=== PATIENT | female | born 1965 | race Caucasian/White ===

== ENCOUNTER → 2016-07-15 | Outpatient (CLI) | payer BC, OTHER | LOC: ULTRA 14:43 | DX: M79.89 Other specified soft tissue disorders (principal) ==

== ENCOUNTER 2018-08-03 12:08 | Observation (INO) | payer BC, OTHER ==
[~2018-08-03] VITALS: Ht 172.7 cm; Wt 82.6 kg
--- NOTE | ~2018-08-03 | O ---
[facility] [place] [address] OPERATIVE REPORT Name: MERLYN LYON Room #: 150-1 ADM IN M.R.#: [id number] Admission: 08/03/18 ������������������ Attend Phys: Steve Foster MD Discharge: ������������������ Date of : 67 Report #: [id number] THIS REPORT FOR: //name// CC: JOSIAS Foster Physician staff DATE OF SERVICE: 08/03/2018 PREOPERATIVE DIAGNOSIS: Cholecystitis, acalculous. POSTOPERATIVE DIAGNOSIS: Cholecystitis, acalculous. PROCEDURES PERFORMED: Laparoscopic cholecystectomy with cholangiogram. ANESTHESIA: General anesthesia. SURGEON: Steve Foster M.D. COMPLICATIONS: None. ESTIMATED BLOOD LOSS: 15 mL. DESCRIPTION OF PROCEDURE: With the patient under general anesthesia, abdomen was prepped and draped in sterile fashion and the patient received preoperative Levaquin. Abdomen was prepped and draped in sterile fashion, timeout was performed. A 0.25% Marcaine was used to anesthetize the skin and subcutaneous tissue above the umbilicus. A 2-cm curved incision was made above the umbilicus. Fascia was identified. Fascia was then grasped with hemostat. Fascia was then opened under visualization, 0 Vicryl suture placed on the fascia edges. With the abdominal wall lifted anteriorly, Veress needle was placed through the peritoneum. Abdominal cavity was insufflated by CO2 without difficulty. After creating pneumoperitoneum, 11-mm trocar was placed under visualization. Inferior to the trocar site, there is omental adhesion from prior surgery. The patient also did have some adhesions in the left upper quadrant. She did have some pain in the passing of left upper quadrant, I decided to free the adhesion. This was just fatty adhesion to the wall. This was taken down without difficulty. There is some adhesion going more posteriorly, which I left alone, but the majority adhesion was free. Two 5-mm trocars were placed in the right upper quadrant to facilitate the procedure. Another 5-mm trocar was placed in right epigastrium. The patient was then placed in reverse Trendelenburg position, right side tilted up. The gallbladder was identified. The area around the gallbladder did show some edema and serous fluid around it consistent with inflammation. The fluid is clear looking. The gallbladder also had significant amount of adhesion onto the ventral surface. The adhesions were taken down. The gallbladder was isolated. Peritoneum over [address] [address] OPERATIVE REPORT Name: MERLYN LYON Room #: 150-1 ADM IN M.R.#: [id number] Admission: 08/03/18 ������������������ Attend Phys: Steve Foster MD Discharge: ������������������ Date of : 67 Report #: [id number] the cystic duct and the artery was dissected free. When I got to isolate the cystic duct, the cystic duct was enlarged. I did not feel any filling defect in the cystic duct. The common duct is felt to be more medial and I could see a little bit of the bile in the common duct area. The cystic artery was then isolated. I went ahead and divided the cystic artery. Two clips were placed proximally on the cystic artery, one placed distally and the cystic artery was divided without difficulty. The entire triangle of Calot window was opened up for a critical view. The gallbladder seemed to come into the cystic duct. A clip was placed in junction of cystic duct to the common duct. An opening was made in the cystic duct. Cholangiogram catheter was placed. Fluoroscopic cholangiogram was obtained. The cholangiogram catheter was identified in the cystic duct. The patient did have a fairly tortuous cystic duct. The common duct filled out without difficulty. The left hepatic duct did not have as much contrast, which is fairly common. Contrast flowed readily into the duodenum. There was no filling defect in the common duct. Cholangiogram catheter again was seen in the cystic duct, no harm to the common duct. The catheter was then removed. The proximal cystic duct was then clipped x 2 and divided. The patient did have a posterolateral artery on the bed. This was isolated, clipped x 2 proximally and one distally and then divided. This artery actually was splitting into two. The one that was going up along the liver bed did have some backbleeding. This was eventually controlled with cautery. Gallbladder was free from the liver bed without difficulty. The patient was noted to have small amount of oozing on the gallbladder bed along the very superficial portion of the liver bed. Cautery was used to obtain hemostasis and a Surgicel was placed over this area. Gallbladder was retrieved through the infraumbilical port. Gallbladder was opened off the field. The bile did contain a sludgy material and there was light buildup of cholesterolosis in the gallbladder wall. Liver bed was checked and there was no bleeding identified and no bile seen. Irrigation was aspirated out. CO2 was evacuated as much as possible and trocars removed. Fascia defect above the umbilicus was closed with [id number] 0 Vicryl x 2. Skin was irrigated, closed with 5-0 PDS. Steri-Strip, Band-Aids applied. The patient taken to recovery room having tolerated the procedure well. ��������������������������������������������� ���������������������������������������� By: ��������������������������������������������� [id number] Steve Foster MD /nt
[2018-08-03] MEDS ORDERED: VITAMIN D5000 UNIT PO (13:13)
[2018-08-03] MEDS ORDERED: VITAMIN B-12500 MCG PO (13:13)
[2018-08-03] MEDS ORDERED: CYMBALTA20 MG PO (13:13)
[2018-08-03 13:15] VITALS: BP 110/86
[2018-08-03 19:02] VITALS: BP 119/75
[2018-08-04 00:02] VITALS: BP 115/75
--- NOTE | 2018-08-04 06:40 | NUR ---
PT ARRIVED TO ROOM 360 VIA BED WITH JEWEL BEARING GRINDER. PLACED IN ROOM 360. ADMISSION ASSESSMENTS COMPLETED. ABD SITES X4 WITH BANDAID C/D/I. PT AMBULATED THE HALLWAY ONCE WITH OUT ASSISTANCE AND STABLE GAIT. X1 DOSE OF FENTANYL SHORTLY AFTER ARRIVAL TO THE UNIT. NO FURTHER PAIN MEDICATION HAS BEEN REQUESTED. HAS DENIED ANY NAUSEA. HAS VOIDED X3 SINCE ARRIVAL TO THE UNIT.
[2018-08-04 07:25] VITALS: BP 119/72
[2018-08-04] MEDS ORDERED: [UNRECOGNIZED DRUG - OTHER] (12:45)
--- NOTE | 2018-08-04 14:30 | NUR ---
ASSESSMENT: CM REVIEWED CHART AND MET WITH PATIENT AT THE BEDSIDE. PT IS ALERT AND ORIENTED X4. PT IS S/P LAP LACI. PT REPORTS SHE LIVES IN AN APT ALONE. PT REPORTS HAVING ABOUT 7 STEPS WITH HANDRAILS TO ENTER HER APT. PT REPORTS NO STEPS ONCE INSIDE. PT REPORTS BEING FULLY INDEPENDENT WITH ADLS AND AMBULATION. PT DENIES HAVING HH IN THE PAST. PT DENIES HAVING ANY DME. CM DISCUSSED ROLE. PT ANTICIPATES DISCHARGING HOME WITH NO NEEDS. PT REPORTS SHE WILL HAVE TRANSPORTATION HOME.
[2018-08-04 15:50] VITALS: BP 121/69
[2018-08-04] MEDS ORDERED: TYLENOL EXTRA500 MG PO (17:30)
[2018-08-04] MEDS ORDERED: IBUPROFEN 600600 M1 PO (17:31)
[2018-08-04 17:36] VITALS: BP 121/69
--- NOTE | 2018-08-07 17:06 | PATH ---
[facility] [address] [place] [address] PATHOLOGY RPT PROCEDURE Name: ANA LYON Room #: 360-P [facility] Ginger MGeriRGeri#: [id number] ������������������ Admission: 08/03/18 ������������������ Date of : 67 Discharge: 08/04/18 Report #: [id number] Path Case #: [id number] [facility] Accession Number: [id number] . 01 Material submitted: . gallbladder - GALLBLADDER . 01 Clinical history: . Cholecystitis . 02 Diagnosis: Gallbladder, cholecystectomy: - Mild chronic cholecystitis. (IUV:polysomnograph tech; 08/07/2018) MBR/08/07/2018 . 02 Electronically signed: . Carolyn Malhotra MD, Pathologist NPI- [id number] . 01 Gross description: . The specimen is received in formalin, labeled "Ana Lyon, gallbladder", is a previously opened gallbladder measuring 7.5 cm in length and 2.2 cm in maximum diameter with a shaggy, yellow-green serosa. The cystic duct is patent. The mucosa is hunt-brown with no cholesterolosis. No discrete calculi are identified within the container. The wall is 0.1 cm in average thickness. Contract Recruiter tissue is submitted in A1. (SWS; 08/04/2018) SHS/SHS . 02 Pathologist provided ICD-10: K81.1 . 02 CPT . 203889 Specimen Comment: A courtesy copy of this report has been sent to Specimen Comment: [phone], . Specimen Comment: Report sent to / DR DIAMOND Performed at: [address], [place] [id number] MD Arnulfo Coulter MD Phone: [phone] Performed at: [address] [id number] MD Carolyn Malhotra MD Phone: [phone]
== END 2018-08-04 18:01 | disposition home or self-care (01) ==
LOC: TBA 12:08 → 3W 12:08
PROVIDERS: ADMIT Surgery
DX: K81.1 Chronic cholecystitis (principal); K82.8 Other specified diseases of gallbladder; Z88.0 Allergy status to penicillin; Z88.2 Allergy status to sulfonamides
CPT/HCPCS: 10779; 50010; 50101; 50411; 50555; 50558; 51489; 53307; 53310; 55245; 55317; 56525; 56526; 56638; 62110; 62900; 70005

== ENCOUNTER → 2018-08-10 | Outpatient (CLI) | payer BC, OTHER ==
[~2018-08-10] MED LIST: CYMBALTA20 MG PO; IBUPROFEN 600600 M1 PO; TYLENOL EXTRA500 MG PO; VITAMIN B-12500 MCG PO; VITAMIN D5000 UNIT PO; [UNRECOGNIZED DRUG - OTHER]
== END ==
LOC: RAD 13:12
DX: R07.9 Chest pain, unspecified (principal)

== ENCOUNTER 2020-01-17 20:11 | Emergency (ER) | payer BC, OTHER ==
[~2020-01-17] VITALS: Ht 172.7 cm; Wt 86.2 kg
[2020-01-17 20:36] LABS: ABSOLUTE NEUTROPHILS 4.3 thou/uL (1.4-8.2); BASOPHILS 0.6 % (0.0-2.0); EOSINOPHILS 2.2 % (0.0-3.0); HEMATOCRIT 36.8 % (37.0-47.0); HEMOGLOBIN 12.2 gm/dL (12.0-15.0); MCH 32.4 pg (26.0-34.0); MCHC 33.2 g/dL (28.0-37.0); MCV 97.5 fL (80.0-100.0); MONOCYTES 6.8 % (1.0-8.0); PLATELET COUNT 262 thou/uL (150-400); POLYS 44.4 % (36.0-66.0); RBC 3.77 mil/uL (4.20-5.00); WBC 9.8 thou/uL (4.0-11.0)
[2020-01-17 20:46] LABS: ANION GAP 8 mmol/L (7-16); BUN 14 mg/dL (7-18); CALCIUM 8.7 mg/dL (8.5-10.1); CHLORIDE 102 mmol/L (98-107); CO2 28 mmol/L (21-32); CREATININE 1.1 mg/dL (0.6-1.0); GLUCOSE 87 mg/dL (74-106); POTASSIUM 3.4 mmol/L (3.5-5.1); SODIUM 138 mmol/L (136-145)
[2020-01-17 20:55] LABS: ALBUMIN 3.9 g/dL (3.4-5.0); SGOT 84 U/L (15-37); SGPT 134 U/L (30-65); TOTAL BILIRUBIN 0.2 mg/dL (0.2-1.0); TOTAL PROTEIN 7.5 g/dL (6.4-8.2); TROPONIN-I <0.06 ng/mL (<0.06)
[2020-01-17] MEDS ORDERED: OMEPRAZOLE40 MG PO (22:13)
[2020-01-17] MEDS ORDERED: VIIBRYD20 MG PO (22:14)
[2020-01-17] MEDS ORDERED: SPIRONOLACTONE50 MG PO (22:14)
[2020-01-17] MEDS ORDERED: LORAZEPAM 0.50.5 MG PO (22:14)
[2020-01-17 22:50] LABS: URINE BILIRUBIN NEGATIVE (Negative); URINE BLOOD NEGATIVE (Negative); URINE CLARITY CLEAR; URINE COLOR YELLOW; URINE GLUCOSE-RANDOM* NEGATIVE (Negative); URINE KETONES NEGATIVE (Negative); URINE LEUKOCYTES-REFLEX NEGATIVE (Negative); URINE NITRITE-REFLEX NEGATIVE (Negative); URINE PROTEIN (DIPSTICK) NEGATIVE (Negative); URINE UROBILINOGEN 0.2 E.U./dl (0.2-1.0)
[2020-01-17] MEDS ORDERED: VALACYCLOVIR1000 MG PO (23:29)
[2020-01-18 02:38] VITALS: BP 140/90
[2020-01-18] MEDS ORDERED: TRAMADOL 50 MG50 MG PO (02:41)
[2020-01-18] MEDS ORDERED: ONDANSETRON ODT8 MG PO (02:41)
--- NOTE | 2020-01-18 12:31 | EKG ---
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
== END 2020-01-18 02:55 | disposition home or self-care (01) ==
LOC: ER 20:11
PROVIDERS: Emergency Medicine
DX: R07.9 Chest pain, unspecified (principal); R10.84 Generalized abdominal pain; R11.2 Nausea with vomiting, unspecified; R19.7 Diarrhea, unspecified; R06.00 Dyspnea, unspecified; Z90.710 Acquired absence of both cervix and uterus; Z79.899 Other long term (current) drug therapy; Z88.0 Allergy status to penicillin; Z88.1 Allergy status to other antibiotic agents; Z88.2 Allergy status to sulfonamides; Z88.5 Allergy status to narcotic agent; Z88.8 Allergy status to other drugs, medicaments and biological substances